=== PATIENT | female | born 1990 | race Caucasian/White ===

== ENCOUNTER 2017-10-21 19:35 | Emergency (ER) | payer OTHER, MEDICAID ==
[~2017-10-21] VITALS: Ht 167.6 cm; Wt 127.0 kg
[2017-10-21 19:40] VITALS: Ht 167.6 cm; Wt 127.0 kg
[2017-10-21 20:48] VITALS: BP 149/87
== END 2017-10-21 20:48 | disposition home or self-care (01) ==
LOC: ED 19:35
DX: F41.1 Generalized anxiety disorder (principal); J45.909 Unspecified asthma, uncomplicated

== ENCOUNTER 2019-01-04 08:20 | Emergency (ER) | payer OTHER ==
[~2019-01-04] VITALS: Ht 167.6 cm; Wt 124.3 kg
[2019-01-04 08:23] VITALS: Ht 167.6 cm; Wt 124.3 kg
[2019-01-04 11:08] VITALS: BP 143/66
== END 2019-01-04 11:08 | disposition home or self-care (01) ==
LOC: ED 08:20
DX: J02.9 Acute pharyngitis, unspecified (principal); J45.909 Unspecified asthma, uncomplicated; Z98.890 Other specified postprocedural states